=== PATIENT | male | born 1970 | race Caucasian/White ===

== ENCOUNTER 2016-11-18 10:01 | Day surgery (SDC) | payer OTHER ==
[~2016-11-18 10:01] MED LIST: LEVAQUIN 500MG/100ML 500 MG/100 ML BAG IV NR; LEVAQUIN 500MG/100ML 500 MG/100 ML BAG IV SCH
[2016-11-18] MEDS ORDERED: NACL BACTERIOSTATIC INFILTRATI ONE (11:33)
--- NOTE | 2016-11-18 11:51 | Post Operative Note ---
Date of procedure: 11/18/16 Pre-op diagnosis: r renal pelvic stone Post-op diagnosis: same Findings: as above Procedure: r eswl Anesthesia: CHICA Surgeon: ADI NAQVI Estimated blood loss: none Pathology: none Condition: stable Disposition: PACU
[2016-11-18] MEDS ORDERED: DIPRIVAN 10 MG/ML IV ONE (11:52)
[2016-11-18] MEDS ORDERED: SUBLIMAZE ONE (11:52)
--- NOTE | 2016-11-18 11:52 | Discharge Summary ---
Short Stay Discharge Plan Activity: other (no strianing ) Weight Bearing Status: Full Weight Bearing Diet: regular Special Instructions: home health RN (fluids ), other Follow up with: KATLIN MINA MD [Staff Physician] - 7 Days
[2016-11-18] MEDS ORDERED: XYLOCAINE MPF 2% ONE (11:53)
--- NOTE | 2016-11-18 11:53 | Anesthesia Day of Surgery ---
Anesthesia Day of Surgery - Day of Surgery Patient Examined: Yes Patient H&P Reviewed: Yes Patient is NPO: Yes
--- NOTE | 2016-11-18 11:53 | Anesthesia Consultation ---
Anesthesia Consult and Med Hx Date of service: 11/18/16 - Airway Anesthetic Teeth Evaluation: Good (braces lower) ROM Head & Neck: Adequate Mental/Hyoid Distance: Adequate Mallampati Class: Class I Intubation Access Assessment: Good - Pulmonary Exam CTA: Yes - Cardiac Exam Cardiac Exam: RRR - Pre-Operative Health Status ASA Pre-Surgery Classification: ASA1 Proposed Anesthetic Plan: General - Pre-Anesthesia Comment Pre-Anesthesia Comments: RECURRENT KIDNEY STONES
[2016-11-18] MEDS ORDERED: PEPCID PO NR (12:00)
[2016-11-18] MEDS ORDERED: VERSED IV NR (12:00)
[2016-11-18] MEDS: NACL 0.9% 1000 ML 1,000 ML IV SCH ×2 (12:12→17:10)
[2016-11-18] MEDS ORDERED: ZOFRAN ONE (12:42)
[2016-11-18] MEDS ORDERED: TORADOL ONE (13:06)
[2016-11-18] MEDS ORDERED: ZOFRAN IV PRN (13:39)
[2016-11-18] MEDS: DILAUDID IV PRN ×2 (13:40→13:50)
[2016-11-18] MEDS ORDERED: PERCOCET 5/325 ONE (14:07)
--- NOTE | 2016-11-18 14:09 | Post Anesthesia Evaluation ---
- Post Anesthesia Evaluation Patient Participated: Yes Airway Patent: Yes Stable Respiratory Function: Yes Nausea/Vomiting: No Temp > 96.8F: Yes Pain Manageable: Yes Adequeate Hydration: Yes Anesthesia Complications: No Block Receding Appropriately: Not Applicable Patient on Ventilator: No
[2016-11-18] MEDS ORDERED: PERCOCET 5/325 PO ONE (15:00)
[2016-11-18] MEDS ORDERED: DILAUDID IV PRN (16:17)
--- NOTE | 2016-11-18 16:18 | Operative Report ---
PREOPERATIVE DIAGNOSIS: Right renal pelvic stone. POSTOPERATIVE DIAGNOSIS: Right renal pelvic stone. PROCEDURE: Right in-situ lithotripsy. SURGEON: Ze Quinonez MD ANESTHESIA: General. FINDINGS: This is a gentleman with intermittent right flank pain. He has had a history of stones in the past. All options were discussed with him and his . Before the procedure, the thought was possible stent. We talked about stent and I explained exactly what the stent does and he would rather not have a stent if possible. He left it to my discretion and I told him I would treat him like I treat myself. DESCRIPTION OF PROCEDURE: The patient brought to the operating room and placed on the operating table. Following the induction of anesthesia, the stone was easily localized in both the AP and oblique image. Once the stone was localized in the F2 focal point, shocks were begun at 1 kV and increased to maximum to 5 kV. The stone clearly changed texture, in consistency and opacity. It was clearly fragmented. We decided not to place a stent and to leave it in situ. He has had a stent before and really he did not want it. The patient tolerated the procedure well. He understands he may need a staged procedure with stenting and ureteroscopy if he does not pass all the fragments. He was brought to recovery in stable condition. Family notified. JOB# [id number] MARTHA/ASHLEY
[2016-11-18] MEDS ORDERED: ZOFRAN IV ONE (17:00)
[2016-11-18 18:13] VITALS: BP 132/83
== END 2016-11-18 17:20 | disposition home or self-care (01) ==
LOC: OR 10:01
PROVIDERS: ATTEND Urology
DX: N20.0 Calculus of kidney (principal); Z98.52 Vasectomy status; Z98.890 Other specified postprocedural states; Z88.8 Allergy status to other drugs, medicaments and biological substances; Z88.0 Allergy status to penicillin
CPT/HCPCS: 50590; J1170; J1885; J1956; J2250; J2405; J2704; J3010; J7030